=== PATIENT | male | born 1960 | race Caucasian/White ===

== ENCOUNTER 2022-01-07 03:28 | Observation (INO) ==
[2022-01-07] MEDS ORDERED: Iopamidol - 370 500 ML MLS IVP ONE (03:30)
[2022-01-07] MEDS ORDERED: Nitroglycerin 0.4 MG TAB.SUBL SL PRN (03:31)
[2022-01-07 03:43] LABS: Hematocrit 49.4 % (37.5-50.1); Hemoglobin 16.9 g/dL (12.9-16.9); Mean Corpuscular HGB Conc 34.2 g/dL (31.6-35.5); Mean Corpuscular Hemoglobin 31.9 pg (28.0-33.3); Mean Corpuscular Volume 93.4 fL (83.0-100.0); Platelet Count 240 K/mcL (140-400); Red Blood Count 5.29 M/mcL (4.19-5.50); Red Cell Distribution Width 14.6 % (11.5-14.5); White Blood Count 12.6 K/mcL (4.3-11.1)
[2022-01-07 03:54] LABS: Prothrombin Time 11.2 Seconds (9.4-12.1)
[2022-01-07 03:57] LABS: Activated Partial Thrombo Time 34.3 Seconds (26.0-36.0)
[2022-01-07 03:59] LABS: BUN/Creatinine Ratio 12 (6-26); Blood Urea Nitrogen 9 mg/dL (8-23); Carbon Dioxide 27 mEq/L (23-29); Chloride 103 mEq/L (98-107); Ethanol 139 mg/dL (Less than 10); Glucose 53 mg/dL (70-105); Osmolality,Calculated 280 (280-300); Potassium 3.4 mEq/L (3.5-5.1); Sodium 137 mEq/L (136-145)
[2022-01-07 04:01] LABS: Troponin I < 0.03 ng/mL (< 0.04)
[2022-01-07 04:38] LABS: Bilirubin,Urine Negative (Negative); Blood,Urine Negative (Negative); Clarity,Urine Clear (Clear); Color,Urine Colorless (Yellow); Glucose,Urine (UA) Normal (Normal); Ketones,Urine Negative (Negative); Leukocyte Esterase,Urine Negative (Negative); Nitrite,Urine Negative (Negative); PH,Urine 6.5 pH Units (5.0-8.0); Protein,Urine Negative (Neg-Trace); Specific Gravity,Urine 1.016 (1.010-1.025); Urobilinogen,Urine Normal (Normal)
[2022-01-07 04:43] LABS: Amphetamine Screen,Urine Negative ng/mL (Cutoff=1000); Barbiturate Screen,Urine Negative ng/mL (Cutoff=200); Benzodiazepines Screen,Urine Negative ng/mL (Cutoff=200); Cannabinoid Screen,Urine Negative ng/mL (Cutoff = 50); Cocaine Screen,Urine Negative ng/mL (Cutoff= 300); Opiate Screen,Urine Negative ng/mL (Cutoff=300); Phencyclidine Screen,Urine Negative ng/mL (Cutoff=25)
[2022-01-07] MEDS ORDERED: Melatonin 3 MG TABLET PO PRN (05:44)
[2022-01-07] MEDS ORDERED: Ondansetron ODT 4 MG TAB.RAPDIS SL PRN (05:44)
[2022-01-07] MEDS ORDERED: Naloxone 0.4 MG/ML INJ IVP PRN (05:44)
[2022-01-07] MEDS ORDERED: Potassium Chloride Elixir 20 MEQ/15 ML UDC PO ONE ×2 (06:13→09:15)
[2022-01-07] MEDS ORDERED: *HR* LORazepam 1 MG TABLET PO PRN ×3 (06:14)
[2022-01-07] MEDS ORDERED: Dextrose Gel 15 GM/37.5 ML TUBE PO PRN ×2 (06:42)
[2022-01-07] MEDS ORDERED: *HR* Dextrose 50 % in Water (Syg) 50 ML SYRINGE IVP PRN (06:42)
[2022-01-07] MEDS: Thiamine (B-1) 200 MG in 0.9 % Sodium Chloride 50 ML IVPB SCH (09:04)
[2022-01-07] MEDS: Folic Acid 1 MG TABLET PO SCH (09:04)
[2022-01-07] MEDS: Cefdinir 300 MG CAPSULE PO SCH ×2 (15:36→20:29)
[2022-01-07 16:27] LABS: Influenza A PCR Negative (Negative); Influenza B PCR Negative (Negative); Resp. Syncytial Virus PCR Negative (Negative)
[2022-01-07 16:30] LABS: SARS-CoV-2 by PCR (In House) Negative (Negative)
[2022-01-07] MEDS: lamoTRIgine 100 MG TABLET PO SCH (20:29)
[2022-01-07] MEDS ORDERED: traZODone 50 MG TABLET PO SCH (21:00)
[2022-01-08 02:32] LABS: Hemoglobin 16.3 g/dL (12.9-16.9); Mean Corpuscular HGB Conc 33.3 g/dL (31.6-35.5); Mean Corpuscular Hemoglobin 31.3 pg (28.0-33.3); Mean Platelet Volume 9.2 fL (9.4-12.4); Platelet Count 182 K/mcL (140-400); Red Blood Count 5.21 M/mcL (4.19-5.50); Red Cell Distribution Width 14.6 % (11.5-14.5)
[2022-01-08 02:58] LABS: BUN/Creatinine Ratio 16 (6-26); Blood Urea Nitrogen 12 mg/dL (8-23); Calcium 9.4 mg/dL (8.6-10.3); Carbon Dioxide 25 mEq/L (23-29); Chloride 106 mEq/L (98-107); Glucose 99 mg/dL (70-105); Osmolality,Calculated 286 (280-300); Potassium 3.9 mEq/L (3.5-5.1); Sodium 138 mEq/L (136-145)
[2022-01-08 06:48] VITALS: BP 111/70; PULSE 74; TEMP 97.7; O2SAT 94
[2022-01-08] MEDS: Folic Acid 1 MG TABLET PO SCH (08:07)
[2022-01-08] MEDS: Cefdinir 300 MG CAPSULE PO SCH (08:07)
[2022-01-08] MEDS: lamoTRIgine 100 MG TABLET PO SCH (08:07)
[2022-01-08] MEDS: Thiamine (B-1) 200 MG in 0.9 % Sodium Chloride 50 ML IVPB SCH (08:08)
[2022-01-08] MEDS ORDERED: Aspirin 81 MG TAB.CHEW PO SCH (09:00)
== END 2022-01-08 12:08 | disposition home or self-care (01) ==
LOC: EMEROOARM 03:28 → 3BNU 03:28 → SUATTDRO 06:23 → MERGE 06:23 → 3BNU 07:42
PROVIDERS: ADMIT Student in an Organized Health Care Education/Training Program; ATTEND Family Medicine